=== PATIENT | female | born 1935 | race Caucasian/White ===

== ENCOUNTER 2020-03-29 11:06 | Inpatient (IN) | payer MEDICARE, OTHER ==
[~2020-03-29] VITALS: Ht 162.6 cm; Wt 47.6 kg
[~2020-03-29 11:06] MED LIST: BUPR100T99 PO; LISI40TA4 PO; TERA1CAP4 PO; TRAZ-182 PO
[2020-03-29] MEDS ORDERED: FESO8TAB PO (11:16)
[2020-03-29] MEDS ORDERED: CARV6.252 PO (11:16)
[2020-03-29] MEDS ORDERED: MEMA5TAB42 PO (11:16)
[2020-03-29] MEDS ORDERED: NALO25TA4 PO (11:16)
[2020-03-29] MEDS ORDERED: BUPR100T13 PO (11:16)
[2020-03-29] MEDS ORDERED: [UNRECOGNIZED DRUG - OTHER] PO (11:16)
[2020-03-29] MEDS ORDERED: SITA100T PO (11:16)
[2020-03-29] MEDS ORDERED: ATOR10TA PO (11:16)
[2020-03-29] MEDS ORDERED: PANT40TA49 PO (11:16)
[2020-03-29] MEDS ORDERED: CITA40TA11 PO (11:16)
[2020-03-29] MEDS ORDERED: AMLO-212 PO (11:16)
[2020-03-29] MEDS ORDERED: METH500T6 PO (11:16)
--- NOTE | 2020-03-29 11:28 | NUR ---
[facility] HOME FOR NAUSEA AND VOMITING x TODAY. TO ER BED 8, HOOKED TO MONITOR. DR ROJAS AT BEDSIDE. PATIENT C/O MID CHEST PAIN, EPIGASTRIC PAIN, AND L SIDED ABDOMINAL PAIN. CHANGED TO HOSP GOWN, WARM BLANKET PROVIDED. AAO x 3. BREATHING EVEN AND UNLABORED. KEPT COMFORTABLE
--- NOTE | 2020-03-29 12:09 | NUR ---
PATIENT REFUSES TO START AN IV PERIPHERAL LINE. PATIENT WANTS HER PORT-A-CATH USED FOR BLOOD DRAW AND IV MEDICATIONS. CONTACTED [employer] TO REQUEST FOR MACIAS NEEDLE
--- NOTE | 2020-03-29 12:31 | NUR ---
CALLED DANISH DIAZ TO FOLLOW UP COLLEEN DE PAZ
[2020-03-29] MEDS ORDERED: MORPHINE SULFATE INJ 2 MG/ML DISP.SYRIN ONE (12:52)
[2020-03-29] MEDS ORDERED: ONDANSETRON HCL/PF 4 MG/2 ML VIAL ONE (12:52)
[2020-03-29 12:54] LABS: BASOPHILS # (AUTO) 0.1 /CMM (0.0-0.2); EOSINOPHILS % (AUTO) 0.3 % (0.0-6.0); HEMATOCRIT 39 % (33-45); HEMOGLOBIN 12.9 g/dL (11.5-14.8); LYMPHOCYTES # (AUTO) 0.8 /CMM (0.8-4.8); MEAN CORPUSCULAR HGB CONC 33 g/dl (31.0-36.0); MEAN CORPUSCULAR VOLUME 88 fL (82-100); MONOCYTES # (AUTO) 0.3 /CMM (0.1-1.30); MONOCYTES % (AUTO) 3.1 % (2.0-12.0); NEUTROPHILS # (AUTO) 8.9 /CMM (1.8-8.9); NEUTROPHILS % (AUTO) 87.6 % (43.0-81.0); PLATELET COUNT (AUTO) 278 /CMM (150-450); RED BLOOD CELL COUNT(AUTO) 4.42 MIL/uL (4.0-5.2); WHITE BLOOD COUNT (AUTO) 10.2 K/uL (4.3-11.0)
[2020-03-29] MEDS ORDERED: ONDANSETRON HCL/PF - ER 4 MG/2 ML VIAL IV ONE (13:00)
[2020-03-29] MEDS ORDERED: MORPHINE SULFATE INJ 2 MG/ML DISP.SYRIN IV ONE (13:00)
[2020-03-29 13:06] LABS: CALCIUM, SERUM 9.4 mg/dL (8.5-10.1); CARBON DIOXIDE 26 mmol/L (21-32); CHLORIDE 100 mmol/L (98-107); CREATININE 0.9 mg/dL (0.6-1.3); GLUCOSE 186 mg/dL (74-106); SODIUM SERUM 138 mmol/L (136-145); UREA NITROGEN, BLOOD 23 mg/dL (7-18)
[2020-03-29 13:20] LABS: ALANINE AMINOTRANSFERASE 21 U/L (12-78); ALBUMIN 3.8 g/dL (3.4-5.0); ALKALINE PHOSPHATASE 147 U/L (46-116); ASPARTATE AMINOTRANSFERASE 19 U/L (15-37); BILIRUBIN,DIRECT 0.1 mg/dL (0.0-0.2); BILIRUBIN,TOTAL 0.3 mg/dL (0.2-1.0); LIPASE 56 U/L (73-393); TOTAL PROTEIN, SERUM 7.9 g/dL (6.4-8.2)
[2020-03-29] MEDS ORDERED: IV NS 0.9% 500 ML BAG IV ONE (14:00)
--- NOTE | 2020-03-29 14:18 | NUR ---
KEHINDE HUANG: [phone] DAUGHTER
--- NOTE | 2020-03-29 14:23 | NUR ---
GINI SUCKLE: [phone]
--- NOTE | 2020-03-29 14:36 | NUR ---
PICKED UP BY [employer] FOR CT SCAN W/O CONTRAST
--- NOTE | 2020-03-29 15:19 | NUR ---
panel call placed
[2020-03-29] MEDS ORDERED: MAG HYDROX/AL HYDROX/SIMETH 30 ML UDC PO PRN (17:00)
[2020-03-29] MEDS ORDERED: ONDANSETRON HCL/PF 4 MG/2 ML VIAL IVP PRN (17:00)
[2020-03-29] MEDS ORDERED: MAGNESIUM HYDROXIDE 30 ML UDC PO PRN (17:00)
[2020-03-29] MEDS ORDERED: IV NS 0.9% 1,000 ML IV ONE (17:00)
[2020-03-29] MEDS ORDERED: Z GUARD REMEDY 2 OZ OINT TP PRN (17:00)
[2020-03-29] MEDS ORDERED: ZOLPIDEM TARTRATE 5 MG TABLET PO PRN (17:00)
[2020-03-29] MEDS ORDERED: ACETAMINOPHEN 325 MG TABLET PO PRN (17:00)
[2020-03-29] MEDS: CARVEDILOL 6.25 MG TABLET PO SCH (17:16)
[2020-03-29] MEDS: POTASSIUM CL. PREMIX PERIPHER. 50 ML IV SCH ×4 (17:16→21:30)
--- NOTE | 2020-03-29 17:56 | NUR ---
COVID Negative per Lucia From Laboratory
--- NOTE | 2020-03-29 19:39 | NUR ---
ENDORSEMENT GIVEN TO PHIL SANDOVAL FOR YSABEL
--- NOTE | 2020-03-29 20:38 | NUR ---
ABDI [phone] IMANI NGOOA
[2020-03-29] MEDS ORDERED: CLON0.5T4 PO (20:44)
[2020-03-29] MEDS ORDERED: MYRBETRIQ PO (20:44)
[2020-03-29] MEDS ORDERED: LIDO30AD10 TP (20:44)
--- NOTE | 2020-03-29 20:44 | NUR ---
UPDATED HOME MEDS MEDRECON PER DAUGHTER ABDI: D/C NOCDURNA D/C MOVANTIK +CLONAZEPAM 0.5BID NAMENDA TO BID BUPROPION TO TID MYRBETRIQ 50MG QD LIDODERM PATCH TO LOWER BACK QD CALLED [facility] SPECIALIST TO REVIEW MEDS
--- NOTE | 2020-03-29 21:34 | NUR ---
REPORT GIVEN TO GARRETT SANDOVAL FOR YSABEL PT WILL BE TRANSPORTED TO 1ST FLOOR
[2020-03-29] MEDS ORDERED: POTASSIUM CL. PREMIX PERIPHER. 50 ML ONE (21:36)
[2020-03-29] MEDS: buPROPion 100 MG TABLET PO SCH (22:00)
--- NOTE | 2020-03-29 22:23 | NUR ---
PT TRANSPORTED TO 3RD FLOOR
[2020-03-29 22:30] VITALS: BP 153/94
--- NOTE | 2020-03-29 22:30 | NUR ---
MS CONTOUR STITCHER NOTE: RECEIVED PT FROM E.R. A/O X2-3. PT. HAS PORT A CATH. NS RUNNING AT 75 ML/HR. PT. ON R.A. 2 L NC. NO ACUTE DISTRESS OR SOB NOTED. BREATHING EVEN AND UNLABORED. BED IN LOW AND LOCKED POSITION. 2 SIDE RAILS UP. CALL LIGHT WITHIN REACH. WILL CONTINUE TO MONITOR.
[2020-03-29] MEDS ORDERED: buPROPion SR 100 MG TABLET.ER PO ONE (22:52)
[2020-03-29] MEDS: ATORVASTATIN 10 MG TABLET PO SCH (22:57)
--- NOTE | 2020-03-29 23:42 | NUR ---
MS RN NOTE: HELD WELLBUTRIN MEDICATION DUE TO MEDICATION BEING UNAVAILABLE. CHARGE NURSE AND COUNTY MANAGER AWARE. WILL CONTINUE TO MONITOR.
[2020-03-30] MEDS: HYDROCODONE/APAP 5/325MG TABLET PO PRN (03:34)
--- NOTE | 2020-03-30 03:38 | NUR ---
MS RN NOTE: PT. C/O OF 10/10 PAIN IN ABDOMEN. ADMINISTERED NORCO PO PRN ORDERED. WILL CONTINUE TO MONITOR.
[2020-03-30] MEDS ORDERED: POTASSIUM CL. PREMIX PERIPHER. 50 ML ONE ×2 (05:27→06:50)
[2020-03-30] MEDS: POTASSIUM CL. PREMIX PERIPHER. 50 ML IV SCH ×2 (05:28→06:51)
--- NOTE | 2020-03-30 07:20 | NUR ---
MS/RN OPENING NOTE THE PATIENT IS RECEIVED IN BED. PATIENT IS ALERT AND ORIENTED X2 AND ABLE TO MAKE NEEDS KNOWN VERBALLY. DENIES PAIN AT THIS TIME. THE PATIENT IS RECEIVING OXYGEN VIA NASAL CANNULA 2L/MIN AND DENIES SOB. RESPIRATION REGULAR AND UNLABORED. PORT-A-CATH IN PLACE. BED LOW AND LOCKED. SIDE RAILS UP X3. CALL LIGHT WITHIN REACH. WILL CONTINUE TO MONITOR.
[2020-03-30 08:00] VITALS: BP 163/81
--- NOTE | 2020-03-30 08:27 | NUR ---
MS/RN NOTE DR MOSELEY IS MADE AWARE OF XR ABDOMEN RESULT AND RECEIVED A NEW ORDER OF XR SMALL BOWEL FOLLOW THROUGH TO BE DONE 03/31/20 0500. THE ORDER IS READ BACK, VERIFIED. NOTED AND CARRIED OUT. Addendum: 03/30/20 at 0834 by KIRAN MCKINNEY RN MICHAEL/JAIME NOTE PER DR GOMEZ NPKayleigh EXCEPT MED ORDER IS OK TO KEEP.
[2020-03-30] MEDS ORDERED: DESMOPRESSIN ACETATE PO SCH (09:00)
[2020-03-30] MEDS ORDERED: Medication Not On Formulary EA (Naloxegol Oxalate (Movantik) 25 MG) PO SCH (09:00)
[2020-03-30 09:51] LABS: BASOPHILS % (AUTO) 0.1 % (0.0-2.0); HEMATOCRIT 47 % (33-45); HEMOGLOBIN 15.4 g/dL (11.5-14.8); LYMPHOCYTES # (AUTO) 0.8 /CMM (0.8-4.8); LYMPHOCYTES % (AUTO) 8.1 % (20.0-44.0); MEAN CORPUSCULAR HGB CONC 33 g/dl (31.0-36.0); MEAN CORPUSCULAR VOLUME 88 fL (82-100); MONOCYTES # (AUTO) 1.2 /CMM (0.1-1.30); MONOCYTES % (AUTO) 12.3 % (2.0-12.0); NEUTROPHILS # (AUTO) 7.4 /CMM (1.8-8.9); NEUTROPHILS % (AUTO) 79.5 % (43.0-81.0); PLATELET COUNT (AUTO) 285 /CMM (150-450); RED BLOOD CELL COUNT(AUTO) 5.31 MIL/uL (4.0-5.2); WHITE BLOOD COUNT (AUTO) 9.4 K/uL (4.3-11.0)
--- NOTE | 2020-03-30 10:03 | NUR ---
RN NOTE RECEIVED AN ORDER FROM DR MOSELEY CLONAZEPAM 0.5 MG PO BID. READ BACK, VERIFIED. NOTED AND CARRIED OUT.
[2020-03-30] MEDS: METHOCARBAMOL (500MG) 500 MG TABLET PO SCH (10:07)
[2020-03-30] MEDS: PANTOPRAZOLE 40 MG TABLET.DR PO SCH (10:07)
[2020-03-30] MEDS: MEMANTINE HCL 5 MG TABLET PO SCH (10:07)
[2020-03-30] MEDS: CARVEDILOL 6.25 MG TABLET PO SCH ×2 (10:08→16:43)
[2020-03-30] MEDS: CITALOPRAM HYDROBROMIDE 20 MG TABLET PO SCH (10:08)
[2020-03-30] MEDS: OXYBUTYNIN CHLORIDE 5 MG TABLET PO SCH ×3 (10:08→16:43)
[2020-03-30] MEDS: AMLODIPINE BESYLATE 5 MG TABLET PO SCH (10:11)
[2020-03-30 10:19] LABS: CALCIUM, SERUM 9.2 mg/dL (8.5-10.1); CREATININE 0.9 mg/dL (0.6-1.3); MAGNESIUM 3.2 mg/dL (1.8-2.4); PHOSPHORUS 3.9 mg/dL (2.5-4.9); POTASSIUM 4.2 mmol/L (3.5-5.1)
[2020-03-30] MEDS ORDERED: clonazePAM 0.5 MG TABLET PO PRN (10:30)
--- NOTE | 2020-03-30 10:40 | NUR ---
MS/RN NOTE THE PATIENT IS IN STABLE CONDITION. REPORT GIVEN TO JAIME ROSAS, ALSO, MADE HER AWARE TO FOLLOW UP WITH PHARMACY TO DELIVER NITROGLYCERIN AND WITH DR PITTMAN REGARDING ECHO.
[2020-03-30] MEDS: NITROGLYCERIN 30 GM TUBE TP SCH ×2 (12:48→21:05)
[2020-03-30 16:00] VITALS: BP 164/81
--- NOTE | 2020-03-30 18:59 | NUR ---
RN closing Patient in bed resting, does no appears pain or discomfort. Skin is warm to touch keep clean/dry, intact IV site. Respiratory even and unlabored with oxygen at 2LPM O2sat 93%. Kept elevated HOB for ensure air way and aspiration precaution and lowest bed for safety. Call light within reach, will endorse shiftman.
--- NOTE | 2020-03-30 19:30 | NUR ---
RN opening notes Pt is resting in bed comfortably. Pt is alert and orientedX2. Respiration is normal in 2 L NC. No SOB. No S/S of distress noted. Port acath at L chest wall is clean,intact and patent. Safety precautions is maintained. Bed at low position, brakes locked, side rails upX2, hob elevated and call light is within reach. Will continue to monitor.
[2020-03-30 20:31] VITALS: BP 152/79
[2020-03-30] MEDS: ATORVASTATIN 10 MG TABLET PO SCH (21:04)
[2020-03-30] MEDS: buPROPion 100 MG TABLET PO SCH (21:04)
--- NOTE | 2020-03-31 06:50 | NUR ---
RN closing notes Pt is resting in bed comfortably. Pt is alert and orientedX2. Respiration is normal in 2 L NC. No SOB. No S/S of distress noted. Port acath at L chest wall is clean,intact and patent. VS is stable. Afebrile. Routine meds were given as ordered. Kept Pt clean, dry and comfortable. Safety precautions is maintained. Bed at low position, brakes locked, side rails upX2 and call light is within reach. Will endorse to morning nurse for YSABEL.
[2020-03-31 08:00] VITALS: BP 151/75
--- NOTE | 2020-03-31 08:16 | NUR ---
MS NAREN NOTES PATIENT IS A/O X 2 ON 2L OF NASAL CANNULA WITH NO SIGNS OF DISTRESS. LEFT CHEST PORTH CATH INTACT. CURRENTLY NPO EXCEPT MEDS. SAFETY MEASURES ARE APPLIED BED IS IN THE LOWEST POSITION SIDE RAILS UP X 2. CALL LIGHT WITHIN REACH WILL CONTINUE TO MONITOR.
[2020-03-31] MEDS: MEMANTINE HCL 5 MG TABLET PO SCH (09:14)
[2020-03-31] MEDS: METHOCARBAMOL (500MG) 500 MG TABLET PO SCH (09:14)
[2020-03-31] MEDS: PANTOPRAZOLE 40 MG TABLET.DR PO SCH (09:14)
[2020-03-31] MEDS: AMLODIPINE BESYLATE 5 MG TABLET PO SCH (09:14)
[2020-03-31] MEDS: CARVEDILOL 6.25 MG TABLET PO SCH ×2 (09:15→17:20)
[2020-03-31] MEDS: OXYBUTYNIN CHLORIDE 5 MG TABLET PO SCH ×3 (09:15→17:20)
[2020-03-31] MEDS: CITALOPRAM HYDROBROMIDE 20 MG TABLET PO SCH (09:15)
[2020-03-31] MEDS: NITROGLYCERIN 30 GM TUBE TP SCH ×2 (09:18→21:07)
[2020-03-31] MEDS ORDERED: DIATR MEGLU/DIATRIZOATE SODIUM 120 ML BOTTLE (GASTROGRAPHIN) ONE (10:49)
[2020-03-31 16:00] VITALS: BP 172/84
[2020-03-31 16:19] LABS: BASOPHILS % (AUTO) 0.2 % (0.0-2.0); HEMATOCRIT 38 % (33-45); HEMOGLOBIN 12.5 g/dL (11.5-14.8); LYMPHOCYTES # (AUTO) 0.7 /CMM (0.8-4.8); MEAN CORPUSCULAR HGB CONC 33 g/dl (31.0-36.0); MEAN CORPUSCULAR VOLUME 87 fL (82-100); MONOCYTES % (AUTO) 19.5 % (2.0-12.0); NEUTROPHILS # (AUTO) 3.3 /CMM (1.8-8.9); NEUTROPHILS % (AUTO) 66.3 % (43.0-81.0); PLATELET COUNT (AUTO) 203 /CMM (150-450); RED BLOOD CELL COUNT(AUTO) 4.35 MIL/uL (4.0-5.2)
[2020-03-31 18:48] LABS: BAND % (MANUAL) 12 % (0.0-5.0); LYMPHOCYTES % (MANUAL) 25 % (16-48); MONOCYTES % (MANUAL) 13 % (0-11.0); NEUTROPHILS % (MANUAL) 50 (42-76)
[2020-03-31 20:00] VITALS: BP 146/81
--- NOTE | 2020-03-31 21:42 | NUR ---
MS CLOSE NOTES PATIENT IS A/O X 2 ON 2L OF NASAL CANNULA WITH NO SIGNS OF DISTRESS. LEFT CHEST PORTH CATH INTACT. CURRENTLY NPO EXCEPT MEDS. PATIENT KEPT CLEAN AND DRY. ALL NEEDS, CARE, TREATMENT, AND MEDICATIONS WERE ADMINISTERED ANTICIPATED PER ORDER. SAFETY MEASURES ARE APPLIED, BED IS IN LOW POSITION SIDE RAILS UP X 2. CALL LIGHT WITHIN REACH WILL ENDORSE TO THE REFRACTORY REPAIRER NURSE.
[2020-03-31] MEDS: buPROPion 100 MG TABLET PO SCH (22:17)
[2020-03-31] MEDS: ATORVASTATIN 10 MG TABLET PO SCH (22:17)
--- NOTE | 2020-03-31 22:40 | NUR ---
RN NOTES RECEIVED CRITICAL LAB RESULTS FROM LAB POTASSIUM 2.5 SODIUM 93 CHLORIDE 64 REPORTED LAB VALUES TO MD TOUSSAINT PER MD NO NEW ORDERS AT THIS TIME.
[2020-03-31] MEDS: HYDROCODONE/APAP 5/325MG TABLET PO PRN (23:03)
[2020-03-31 23:25] LABS: POTASSIUM 3.8 mmol/L (3.5-5.1); SODIUM SERUM 135 mmol/L (136-145)
[2020-03-31 23:26] LABS: CHLORIDE 100 mmol/L (98-107)
[2020-03-31 23:28] LABS: CARBON DIOXIDE 31 mmol/L (21-32)
[2020-03-31 23:29] LABS: CALCIUM, SERUM 9.6 mg/dL (8.5-10.1); GLUCOSE 139 mg/dL (74-106)
[2020-03-31 23:30] LABS: CREATININE 1.1 mg/dL (0.6-1.3); UREA NITROGEN, BLOOD 50 mg/dL (7-18)
[2020-04-01 07:07] LABS: BASOPHILS % (AUTO) 0.1 % (0.0-2.0); HEMATOCRIT 38 % (33-45); HEMOGLOBIN 12.5 g/dL (11.5-14.8); LYMPHOCYTES # (AUTO) 0.8 /CMM (0.8-4.8); LYMPHOCYTES % (AUTO) 9.6 % (20.0-44.0); MEAN CORPUSCULAR HGB CONC 33 g/dl (31.0-36.0); MEAN CORPUSCULAR VOLUME 87 fL (82-100); MONOCYTES # (AUTO) 1.3 /CMM (0.1-1.30); NEUTROPHILS % (AUTO) 74.3 % (43.0-81.0); PLATELET COUNT (AUTO) 212 /CMM (150-450); RED BLOOD CELL COUNT(AUTO) 4.38 MIL/uL (4.0-5.2); WHITE BLOOD COUNT (AUTO) 8.1 K/uL (4.3-11.0)
[2020-04-01 07:37] LABS: CALCIUM, SERUM 9.4 mg/dL (8.5-10.1); CREATININE 1.3 mg/dL (0.6-1.3); POTASSIUM 3.7 mmol/L (3.5-5.1)
[2020-04-01 08:00] VITALS: BP 128/73
[2020-04-01] MEDS: NITROGLYCERIN 30 GM TUBE TP SCH ×2 (09:00→21:46)
[2020-04-01] MEDS: PANTOPRAZOLE 40 MG TABLET.DR PO SCH (09:47)
[2020-04-01] MEDS: METHOCARBAMOL (500MG) 500 MG TABLET PO SCH (09:47)
[2020-04-01] MEDS: MEMANTINE HCL 5 MG TABLET PO SCH (09:47)
[2020-04-01] MEDS: CITALOPRAM HYDROBROMIDE 20 MG TABLET PO SCH (10:04)
[2020-04-01] MEDS: OXYBUTYNIN CHLORIDE 5 MG TABLET PO SCH ×3 (10:05→17:00)
[2020-04-01] MEDS: CARVEDILOL 6.25 MG TABLET PO SCH ×2 (10:05→17:00)
[2020-04-01 11:05] LABS: BAND % (MANUAL) 6 % (0.0-5.0); LYMPHOCYTES % (MANUAL) 12 % (16-48); MONOCYTES % (MANUAL) 14 % (0-11.0); NEUTROPHILS % (MANUAL) 68 (42-76)
[2020-04-01] MEDS: IV NS 0.9% 1,000 ML IV PRN (13:39)
[2020-04-01] MEDS: AMLODIPINE BESYLATE 5 MG TABLET PO SCH (13:52)
[2020-04-01 16:05] VITALS: BP 145/74
--- NOTE | 2020-04-01 16:30 | NUR ---
m/s fruit loader machine operator: notes multiple calls from robert (daughter) and updated plan of care. also addressed her concerns to dr. moise to call her and her primary doctor.
--- NOTE | 2020-04-01 16:45 | NUR ---
m/s deputy clerk of court: notes dr. moise called and informed us that he called dr. lamb (surgeon) to see the, kept pt npo. will continue to monitor.
--- NOTE | 2020-04-01 18:30 | NUR ---
m/s composition siding worker: surgeon consult seen and examined by dr. lamb at this time. dr. lamb speaking to robert (daughter) on the phone for updates.
--- NOTE | 2020-04-01 19:30 | NUR ---
m/s [employer]: notes report given to willy (primary nurse) for continuity of care.
--- NOTE | 2020-04-01 20:00 | NUR ---
ms james initial notes received report from am nurse Calixto and seen pt in bed awake but noticed confusion. re-oriented where she at , no signs of any acute distress noted. skin warm and dry to touch. she had IVF infusing at this time. she still npo except meds as ordered. kept her warm and comfortable at all times. bed alarm set for pt safety. side rails x2 up and bed in low and lock in position. place call light at reach.
[2020-04-01 20:40] VITALS: BP 144/77
[2020-04-01] MEDS: buPROPion 100 MG TABLET PO SCH (21:45)
[2020-04-01] MEDS: ATORVASTATIN 10 MG TABLET PO SCH (21:49)
[2020-04-02] MEDS: IV NS 0.9% 1,000 ML IV PRN ×2 (00:25→12:56)
--- NOTE | 2020-04-02 07:00 | NUR ---
MS STEWARD/STEWARDESS NIGHT CLOSING NOTES' PT AWAKE AND ALERT STILL IN BED WITH IVF INFUSING AT THIS TIME. ALL DUE MEDS GIVEN AND ALL NEEDS MET. STABLE THROUGHOUT THE NIGHT , MORNING CARE DONE WITH THE HELPED OF RELIEF MAP MODELER. KEPT HER WARM AND COMFORTABLE AT ALL TIMES. BED ALARM SET FOR PT SAFETY. PLACE CALL LIGHT AT REACH. ENDORSE TO AM NURSE FOR CONTINUITY OF CARE.
[2020-04-02 08:00] VITALS: BP 161/84
--- NOTE | 2020-04-02 08:00 | NUR ---
received pt. in am alert and oriented x2,pleasant,vs stable.follows directions.no acute distress.plans today to transfer to [facility] in [place].
[2020-04-02] MEDS: MEMANTINE HCL 5 MG TABLET PO SCH (09:11)
[2020-04-02] MEDS: METHOCARBAMOL (500MG) 500 MG TABLET PO SCH (09:11)
[2020-04-02] MEDS: OXYBUTYNIN CHLORIDE 5 MG TABLET PO SCH ×2 (09:11→12:41)
[2020-04-02] MEDS: CARVEDILOL 6.25 MG TABLET PO SCH (09:11)
[2020-04-02] MEDS: PANTOPRAZOLE 40 MG TABLET.DR PO SCH (09:12)
[2020-04-02] MEDS: CITALOPRAM HYDROBROMIDE 20 MG TABLET PO SCH (09:12)
[2020-04-02] MEDS: AMLODIPINE BESYLATE 5 MG TABLET PO SCH (09:12)
[2020-04-02 09:29] LABS: BASOPHILS % (AUTO) 0.1 % (0.0-2.0); EOSINOPHILS % (AUTO) 0.1 % (0.0-6.0); HEMATOCRIT 39 % (33-45); HEMOGLOBIN 12.6 g/dL (11.5-14.8); LYMPHOCYTES # (AUTO) 0.8 /CMM (0.8-4.8); LYMPHOCYTES % (AUTO) 10.5 % (20.0-44.0); MEAN CORPUSCULAR HGB CONC 33 g/dl (31.0-36.0); MEAN CORPUSCULAR VOLUME 88 fL (82-100); MONOCYTES # (AUTO) 1.2 /CMM (0.1-1.30); MONOCYTES % (AUTO) 16.5 % (2.0-12.0); NEUTROPHILS # (AUTO) 5.2 /CMM (1.8-8.9); NEUTROPHILS % (AUTO) 72.8 % (43.0-81.0); PLATELET COUNT (AUTO) 220 /CMM (150-450); RED BLOOD CELL COUNT(AUTO) 4.41 MIL/uL (4.0-5.2); WHITE BLOOD COUNT (AUTO) 7.2 K/uL (4.3-11.0)
[2020-04-02 09:53] LABS: BILIRUBIN,TOTAL 0.6 mg/dL (0.2-1.0); CALCIUM, SERUM 8.9 mg/dL (8.5-10.1); CREATININE 0.8 mg/dL (0.6-1.3); MAGNESIUM 2.5 mg/dL (1.8-2.4); TOTAL PROTEIN, SERUM 7.3 g/dL (6.4-8.2)
--- NOTE | 2020-04-02 10:30 | NUR ---
dr. moise in,orders given.
--- NOTE | 2020-04-02 10:45 | NUR ---
rn notified dr. moise of low potassium,per md leyva to wait til transfer to facility.
[2020-04-02 10:50] VITALS: BP 161/84
[2020-04-02] MEDS: NITROGLYCERIN 30 GM TUBE TP SCH (10:50)
[2020-04-02 11:18] LABS: BAND % (MANUAL) 3 % (0.0-5.0); LYMPHOCYTES % (MANUAL) 16 % (16-48); MONOCYTES % (MANUAL) 16 % (0-11.0); NEUTROPHILS % (MANUAL) 65 (42-76)
--- NOTE | 2020-04-02 13:00 | NUR ---
report called to rn at [facility].all papers signed including belonging sheet.
--- NOTE | 2020-04-02 13:45 | NUR ---
bisi cath needle removed.bandaid to site.report to drivers.transferred to [facility] via ambulance.
== END 2020-04-02 14:20 | disposition home health service (06) | DRG 391 ==
LOC: ER 11:10 → TRANSITION 20:23 → MED 21:14
PROVIDERS: ADMIT Family Medicine; ATTEND Internal Medicine
DX: K44.0 Diaphragmatic hernia with obstruction, without gangrene (principal); N17.0 Acute kidney failure with tubular necrosis; I50.22 Chronic systolic (congestive) heart failure; E87.6 Hypokalemia; I11.0 Hypertensive heart disease with heart failure; Z86.718 Personal history of other venous thrombosis and embolism; Z88.0 Allergy status to penicillin; Z88.2 Allergy status to sulfonamides; Z88.8 Allergy status to other drugs, medicaments and biological substances; Z79.84 Long term (current) use of oral hypoglycemic drugs; Z92.3 Personal history of irradiation; Z90.13 Acquired absence of bilateral breasts and nipples; Z85.3 Personal history of malignant neoplasm of breast; Z85.43 Personal history of malignant neoplasm of ovary; K57.90 Diverticulosis of intestine, part unspecified, without perforation or abscess without bleeding; I70.0 Atherosclerosis of aorta; G89.29 Other chronic pain; E11.65 Type 2 diabetes mellitus with hyperglycemia; F31.9 Bipolar disorder, unspecified; K82.8 Other specified diseases of gallbladder; K64.9 Unspecified hemorrhoids; Z87.81 Personal history of (healed) traumatic fracture; F03.90 Unspecified dementia, unspecified severity, without behavioral disturbance, psychotic disturbance, mood disturbance, and anxiety
CPT/HCPCS: 36415; 71045-TC; 74018; 74250-TC; 80048-TC; 80053-TC; 80061-TC; 80076-TC; 83690-TC; 83735-TC; 84100-TC; 84484-TC; 85025-TC; 87081-TC; 93307-TC; 97116-TC; 97530-TC; C9803; G0378; J2270; J2405; J3480; J7030; J7050; Q9963